=== PATIENT | female | born 1980 | race African-American/Black ===

== ENCOUNTER 2019-08-13 17:50 | Emergency (ER) | payer MEDICAID ==
[~2019-08-13] VITALS: Ht 157.5 cm; Wt 99.8 kg
[2019-08-13 18:00] VITALS: BP 144/99
--- NOTE | 2019-08-13 18:28 | Diagnostic Imaging Report ---
EXAM: CT Head Without Intravenous Contrast CLINICAL HISTORY: DIZZY TECHNIQUE: Axial computed tomography images of the head/brain without intravenous contrast. CTDI is 53 mGy and DLP is 953 mGy-cm. One or more of the following dose reduction techniques were used: automated exposure control, adjustment of the mA and/or kV according to patient size, use of iterative reconstruction technique. COMPARISON: No relevant prior studies available. FINDINGS: Brain: Unremarkable. No hemorrhage. No edema. Ventricles: Unremarkable. Bones/joints: Unremarkable. No acute fracture. Soft tissues: Unremarkable. Sinuses: Unremarkable as visualized. Mastoid air cells: Unremarkable as visualized. IMPRESSION: No acute intracranial abnormality.
[2019-08-13 18:57] LABS: BASOPHILS % (AUTO) 1.1 % (0.0-2.0); EOSINOPHILS % (AUTO) 0.5 % (0.0-3.0); HEMATOCRIT 42.8 % (37.0-47.0); LYMPHOCYTES % (AUTO) 24.1 % (20.0-45.0); MEAN CORPUSCULAR VOLUME 95 FL (80-99); MONOCYTES % (AUTO) 3.4 % (1.0-10.0); NEUTROPHILS % (AUTO) 70.9 % (45.0-75.0); PLATELET COUNT 518 K/UL (150-450); RED BLOOD COUNT 4.49 M/UL (4.20-5.40); RED CELL DISTRIBUTION WIDTH 12.3 % (11.6-14.8); WHITE BLOOD COUNT 10.3 K/UL (4.8-10.8)
[2019-08-13 18:58] LABS: APPEARANCE,URINE CLEAR; BILIRUBIN, URINE NEGATIVE (NEGATIVE); COLOR,URINE PALE YELLOW; GLUCOSE, URINE (UA) NEGATIVE (NEGATIVE); KETONES,URINE 2+ (NEGATIVE); LEUKOCYTE ESTERASE ,URINE NEGATIVE (NEGATIVE); NITRITE,URINE NEGATIVE (NEGATIVE); PH,URINE 6.5 (4.5-8.0); PROTEIN,URINE NEGATIVE (NEGATIVE); UROBILINOGEN,URINE NORMAL MG/DL (0.0-1.0)
--- NOTE | 2019-08-13 18:59 | Emergency Room Report ---
History of Present Illness General Chief Complaint: Palpitations Source: Patient Present Illness HPI 38-year-old female with history of hypertension and vertigo currently taking amlodipine and meclizine brought in by paramedics due to 1 week of palpitation. Patient arrives with heart rate of 140s. Patient reports that she has been staying home the whole time and has not left the house and has never gone to the grocery store. Reports that the pain started when she was sleeping. Has been immobile the whole time. Denies any chest pain or chest pain radiation. Denies headache and nausea vomiting at this time. Complains of increased vertigo in the past few days. Has been taking meclizine with little relief. Denies any abdominal pain, nausea vomiting diarrhea. No pedal edema, calf tenderness. Denies pleuritic chest pain. Before fluids were administered patient heart rate dropped to 120. Denies tobacco smoke, taking any drugs, alcohol intake. Appears to be super anxious and keep saying that she does not want to be here as she is afraid of coronavirus. Allergies: Coded Allergies: No Known Allergies (Unverified , 08/13/19) COVID-19 Screening Contact w/high risk pt: No Recent Travel to affected area: No Experienced COVID-19 symptoms?: No Patient History Past Medical History: see triage record Past Surgical History: none Pertinent Family History: none Now: No Immunizations: UTD Reviewed Nursing Documentation: PMH: Agreed; PSxH: Agreed Nursing Documentation-PM Past Medical History: No History, Except For Hx Hypertension: Yes Review of Systems All Other Systems: negative except mentioned in HPI Physical Exam Vital Signs Date Time Temp Pulse Resp B/P (MAP) Pulse Ox O2 Delivery O2 Flow Rate FiO2 08/13/19 17:50 140 20 144/99 (114) 98 Room Air 08/13/19 18:00 98.1 Sp02 EP Interpretation: reviewed, abnormal - Elevated heart rate General Appearance: no apparent distress, alert, GCS 15, non-toxic Head: normocephalic, atraumatic Eyes: bilateral eye normal inspection, bilateral eye PERRL ENT: hearing grossly normal, normal pharynx, no angioedema, normal voice Neck: full range of motion, supple/symm/no masses Respiratory: chest non-tender, lungs clear, normal breath sounds, no rhonchi, speaking full sentences Cardiovascular #1: regular rate, rhythm, no edema, no murmur Cardiovascular #2: 2+ carotid (R), 2+ carotid (L), 2+ radial (R), 2+ radial (L) Gastrointestinal: normal bowel sounds, non tender, soft, non-distended, no guarding, no rebound Rectal: deferred Genitourinary: no CVA tenderness Musculoskeletal: back normal, no calf tenderness, Dalila's Sign negative Neurologic: alert, motor strength/tone normal, oriented x3, sensory intact, responsive, speech normal Psychiatric: judgement/insight normal, memory normal, mood/affect normal, no suicidal/homicidal ideation Skin: no rash Lymphatic: no adenopathy Medical Decision Making PA Attestation All my diagnosis and treatment plans were reviewed ad discussed with my supervising physician Dr. Whittington Diagnostic Impression: Primary Impression: Tachycardia ER Course 38-year-old female with history of hypertension and vertigo currently taking amlodipine and meclizine brought in by paramedics due to 1 week of palpitation. Patient arrives with heart rate of 140s. Patient reports that she has been staying home the whole time and has not left the house and has never gone to the grocery store. Reports that the pain started when she was sleeping. Has been immobile the whole time. Denies any chest pain or chest pain radiation. Denies headache and nausea vomiting at this time. Complains of increased vertigo in the past few days. Has been taking meclizine with little relief. Denies any abdominal pain, nausea vomiting diarrhea. No pedal edema, calf tenderness. Denies pleuritic chest pain. Before fluids were administered patient heart rate dropped to 120. Denies tobacco smoke, taking any drugs, alcohol intake. Appears to be super anxious and keep saying that she does not want to be here as she is afraid of coronavirus. Ddx considered but are not limited to: GA, Angina, COPD, GERD, tachycardia Vital signs: are WNL, pt. is afebrile H&PE are most consistent with tachycardia ORDERS: EKG, Chest XR, cardiac labs ED INTERVENTIONS: 2 L of NS bolus I signed out the patient to Dr. Whittington at 7 PM EKG Diagnostic Results Rate: tachycardiac Rhythm: other - tachy ST Segments: no acute changes Other Impression No acute ST changes Chest X-Ray Diagnostic Results Chest X-Ray Diagnostic Results : Chest X-Ray Ordered: Yes # of Views/Limited/Complete: 1 View Indication: Other EP Interpretation: Yes PA Xray: Interpretation reviewed, by supervising MD, and agrees with findings. Interpretation: no consolidation, no effusion, no pneumothorax Impression: No acute disease Electronically Signed by: Daksha Shaw PA-C CT/MRI/US Diagnostic Results CT/MRI/US Diagnostic Results : Imaging Test Ordered: head CT no contrast Impression FINDINGS: Brain: Unremarkable. No hemorrhage. No edema. Ventricles: Unremarkable. Bones/joints: Unremarkable. No acute fracture. Soft tissues: Unremarkable. Sinuses: Unremarkable as visualized. Mastoid air cells: Unremarkable as visualized. IMPRESSION: No acute intracranial abnormality. Last Vital Signs Date Time Temp Pulse Resp B/P (MAP) Pulse Ox O2 Delivery O2 Flow Rate FiO2 08/13/19 18:00 98.1 131 20 144/99 98 Room Air Daksha Palafox August 13, 2019 18:59
[2019-08-13 19:07] LABS: ANION GAP 12 mmol/L (5-15); BLOOD UREA NITROGEN 11 mg/dL (7-18); CALCIUM 9.6 MG/DL (8.5-10.1); CARBON DIOXIDE 26 MMOL/L (21-32); CHLORIDE 104 MMOL/L (98-107); CREATININE 0.7 MG/DL (0.55-1.30); POTASSIUM 3.4 MMOL/L (3.5-5.1); SODIUM 142 MMOL/L (136-145)
[2019-08-13 19:12] LABS: ALANINE AMINOTRANSFERASE 23 U/L (12-78); ALBUMIN 3.9 G/DL (3.4-5.0); ALBUMIN/GLOBULIN RATIO 0.8 (1.0-2.7); ALKALINE PHOSPHATASE 89 U/L (46-116); ASPARTATE AMINO TRANSFERASE 12 U/L (15-37); BILIRUBIN,TOTAL 0.4 MG/DL (0.2-1.0)
[2019-08-13 19:29] VITALS: BP 142/94
[2019-08-13 20:29] VITALS: BP 146/93
--- NOTE | 2019-08-14 14:45 | Diagnostic Imaging Report ---
Indication: Chest pain Technique: One view of the chest Comparison: none Findings: Lungs and pleural spaces are clear. The heart size is normal. Impression: Negative
== END 2019-08-13 20:29 | disposition home or self-care (01) ==
LOC: EDBD 17:50 → EMR 18:30
DX: R00.0 Tachycardia, unspecified (principal); I10 Essential (primary) hypertension; R42 Dizziness and giddiness
CPT/HCPCS: 36415; 70450; 71045; 80053; 80307; 81003; 81025; 83880; 84484; 85025; 85379; 93005; 96360; J7030; Z7502; 99284; J8499

== ENCOUNTER 2019-12-09 14:45 | Emergency (ER) | payer MEDICAID ==
[~2019-12-09] VITALS: Ht 162.6 cm; Wt 98.9 kg
[2019-12-09] MEDS ORDERED: Lidocaine 2% Visc 15ml soln ORAL ONE (15:00)
[2019-12-09] MEDS ORDERED: Mylanta II UD 30ml ORAL ONE (15:00)
[2019-12-09] MEDS ORDERED: Dicyclomine HCl 10mg/5ml oral soln ORAL ONE (15:00)
--- NOTE | 2019-12-09 15:01 | NUR ---
ED Nurse Note: pt walked in to ER from home due to abdominal pain on Lt upper region for 2 weeks. pt denied N/V/D. per pt, she had diarrhea but due to taking laxative. pt aao x4 and ambulatory. calm and cooperative. skin clean and intact. calm and cooperative. no cardiac or pulmonary distress noted at this time.
--- NOTE | 2019-12-09 15:19 | Emergency Room Report ---
History of Present Illness General Chief Complaint: Abdominal Pain Source: Patient Present Illness HPI 38-year-old female with history of hypertension on amlodipine here with epigastric abdominal pain. Patient says that her pain is been ongoing for about 2 weeks. Says that it is exacerbated when she drinks orange juice and eats spicy food. Says that she suffers from heartburn periodically. Says that she took 1 Pepcid 2 days ago without any relief and drank some Pepto-Bismol earlier today and felt somewhat better. Pain is sharp in nature, located in the epigastric region, does not otherwise radiate. No other exacerbating or alleviating factors. Denies headaches, vision change, fevers, chills, chest pain, palpitation, shortness of breath, back pain vomiting, diarrhea, dysuria, hematuria, melena, hematochezia. 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 Past Medical History: No History, Except For Hx Hypertension: Yes Review of Systems All Other Systems: negative except mentioned in HPI Physical Exam Vital Signs Date Time Temp Pulse Resp B/P (MAP) Pulse Ox O2 Delivery O2 Flow Rate FiO2 12/09/19 14:49 97.9 132 18 162/90 (114) 98 Room Air Sp02 EP Interpretation: reviewed, normal General Appearance: no apparent distress, alert, GCS 15, non-toxic Head: normocephalic, atraumatic Eyes: bilateral eye normal inspection, bilateral eye PERRL ENT: hearing grossly normal, normal pharynx, no angioedema, normal voice Neck: full range of motion, supple/symm/no masses Respiratory: chest non-tender, lungs clear, normal breath sounds, speaking full sentences Cardiovascular #1: regular rate, rhythm, no edema Cardiovascular #2: 2+ carotid (R), 2+ carotid (L), 2+ radial (R), 2+ radial (L) , 2+ dorsalis pedis (R), 2+ dorsalis pedis (L) Gastrointestinal: normal bowel sounds, non tender, soft, non-distended, no guarding, no rebound Rectal: deferred Genitourinary: normal inspection, no CVA tenderness Musculoskeletal: back normal, normal range of motion, calf tenderness, gait/ station normal, non-tender Neurologic: alert, motor strength/tone normal, oriented x3, sensory intact, responsive, speech normal Psychiatric: judgement/insight normal, memory normal, mood/affect normal, no suicidal/homicidal ideation Lymphatic: no adenopathy Medical Decision Making Diagnostic Impression: Primary Impression: Abdominal pain ER Course Laboratory Tests Test 12/09/19 15:20 White Blood Count 8.3 K/UL (4.8-10.8) Red Blood Count 4.10 M/UL (4.20-5.40) L Hemoglobin 13.6 G/DL (12.0-16.0) Hematocrit 39.4 % (37.0-47.0) Mean Corpuscular Volume 96 FL (80-99) Mean Corpuscular Hemoglobin 33.3 PG (27.0-31.0) H Mean Corpuscular Hemoglobin Concent 34.6 G/DL (32.0-36.0) Red Cell Distribution Width 11.8 % (11.6-14.8) Platelet Count 452 K/UL (150-450) H Mean Platelet Volume 6.7 FL (6.5-10.1) Neutrophils (%) (Auto) 55.8 % (45.0-75.0) Lymphocytes (%) (Auto) 36.2 % (20.0-45.0) Monocytes (%) (Auto) 5.1 % (1.0-10.0) Eosinophils (%) (Auto) 1.5 % (0.0-3.0) Basophils (%) (Auto) 1.5 % (0.0-2.0) Urine Color Pale yellow Urine Appearance Clear Urine pH 7 (4.5-8.0) Urine Specific [place] 1.005 (1.005-1.035) Urine Protein Negative (NEGATIVE) Urine Glucose (UA) Negative (NEGATIVE) Urine Ketones Negative (NEGATIVE) Urine Blood Negative (NEGATIVE) Urine Nitrite Negative (NEGATIVE) Urine Bilirubin Negative (NEGATIVE) Urine Urobilinogen Normal MG/DL (0.0-1.0) Urine Leukocyte Esterase Trace (NEGATIVE) H Urine RBC 0-2 /HPF (0 - 2) Urine WBC 2-4 /HPF (0 - 2) Urine Squamous Epithelial Cells Few /LPF (NONE/OCC) Urine Bacteria Few /HPF (NONE) Urine HCG, Qualitative Negative (NEGATIVE) Sodium Level 140 MMOL/L (136-145) Potassium Level 4.5 MMOL/L (3.5-5.1) Chloride Level 103 MMOL/L (98-107) Carbon Dioxide Level 30 MMOL/L (21-32) Anion Gap 7 mmol/L (5-15) Blood Urea Nitrogen 14 mg/dL (7-18) Creatinine 0.7 MG/DL (0.55-1.30) Estimated Glomerular Filtration Rate > 60 mL/min (>60) Glucose Level 86 MG/DL (74-106) Calcium Level 9.7 MG/DL (8.5-10.1) Total Bilirubin 0.4 MG/DL (0.2-1.0) Aspartate Amino Transferase (AST) 13 U/L (15-37) L Alanine Aminotransferase (ALT) 21 U/L (12-78) Alkaline Phosphatase 89 U/L (46-116) Total Protein 8.6 G/DL (6.4-8.2) H Albumin 3.8 G/DL (3.4-5.0) Globulin 4.8 g/dL Albumin/Globulin Ratio 0.8 (1.0-2.7) L Lipase 119 U/L (73-393) 38-year-old female here with epigastric abdominal pain. Patient was hemodynamically stable in the emergency department had a completely normal physical examination. She received a GI cocktail with complete resolution of her symptoms. CBC, CMP, lipase all unremarkable. Urinalysis normal. Ddx: Hernia, bladder or kidney stones, diverticulitis, enteritis, appendicitis, genital pathology, GERD, gastritis Low suspicion at this time for serious pathology given the patient's normal vital signs, physical examination, lab work. Was given prescription for Pepcid 20 mg daily for 30 days. Told to follow-up with her primary care physician. Told to return to the emergency department she has any worsening abdominal pain , vomiting, diarrhea, bloody vomit or bloody stool. She expressed understanding and was discharged. Last Vital Signs Date Time Temp Pulse Resp B/P (MAP) Pulse Ox O2 Delivery O2 Flow Rate FiO2 12/09/19 14:49 97.9 132 18 162/90 (114) 98 Room Air Scripts Methocarbamol* (ROBAXIN-750*) 750 Mg Tablet 750 MG PO TID, #21 TAB 0 Refills Prov: Jayant Taylor M.D. 12/09/19 Famotidine* (Pepcid 20mg tablet*) 20 Mg Tablet 20 MG ORAL DAILY, #30 TAB 0 Refills Prov: Jayant Taylor M.D. 12/09/19 Referrals: [facility],REFERRING (PCP) Jayant Taylor M.D. Dec 09, 2019 15:19
[2019-12-09 15:36] LABS: APPEARANCE,URINE CLEAR; BILIRUBIN, URINE NEGATIVE (NEGATIVE); COLOR,URINE PALE YELLOW; GLUCOSE, URINE (UA) NEGATIVE (NEGATIVE); KETONES,URINE NEGATIVE (NEGATIVE); NITRITE,URINE NEGATIVE (NEGATIVE); PH,URINE 7 (4.5-8.0); PROTEIN,URINE NEGATIVE (NEGATIVE); UROBILINOGEN,URINE NORMAL MG/DL (0.0-1.0)
[2019-12-09 15:45] VITALS: BP 136/86
[2019-12-09 15:55] LABS: BASOPHILS % (AUTO) 1.5 % (0.0-2.0); EOSINOPHILS % (AUTO) 1.5 % (0.0-3.0); HEMATOCRIT 39.4 % (37.0-47.0); HEMOGLOBIN 13.6 G/DL (12.0-16.0); LYMPHOCYTES % (AUTO) 36.2 % (20.0-45.0); MEAN CORPUSCULAR VOLUME 96 FL (80-99); MONOCYTES % (AUTO) 5.1 % (1.0-10.0); NEUTROPHILS % (AUTO) 55.8 % (45.0-75.0); PLATELET COUNT 452 K/UL (150-450); RED CELL DISTRIBUTION WIDTH 11.8 % (11.6-14.8); WHITE BLOOD COUNT 8.3 K/UL (4.8-10.8)
[2019-12-09 16:00] LABS: LEUKOCYTE ESTERASE ,URINE TRACE (NEGATIVE)
[2019-12-09 16:01] LABS: ANION GAP 7 mmol/L (5-15); BLOOD UREA NITROGEN 14 mg/dL (7-18); CALCIUM 9.7 MG/DL (8.5-10.1); CARBON DIOXIDE 30 MMOL/L (21-32); CHLORIDE 103 MMOL/L (98-107); CREATININE 0.7 MG/DL (0.55-1.30); POTASSIUM 4.5 MMOL/L (3.5-5.1); SODIUM 140 MMOL/L (136-145)
[2019-12-09 16:11] LABS: ALANINE AMINOTRANSFERASE 21 U/L (12-78); ALBUMIN 3.8 G/DL (3.4-5.0); ALBUMIN/GLOBULIN RATIO 0.8 (1.0-2.7); ALKALINE PHOSPHATASE 89 U/L (46-116); ASPARTATE AMINO TRANSFERASE 13 U/L (15-37); BILIRUBIN,TOTAL 0.4 MG/DL (0.2-1.0)
[2019-12-09] MEDS ORDERED: FAMOTIDINE20 MG ORAL (16:24)
[2019-12-09 16:29] VITALS: BP 126/82
[2019-12-09] MEDS ORDERED: ROBAXIN-750750 MG PO (16:30)
--- NOTE | 2019-12-09 16:30 | NUR ---
ED Nurse Note: Pt cleared by health care Provider for discharge. DC instructions/prescription was given and explained to pt and verbalized understanding of teachings. All medical deviecs such as ID band removed. Pt is AAO x4, ambulatory and left with all personal belongings.
== END 2019-12-09 16:30 | disposition home or self-care (01) ==
LOC: EMR 15:01
DX: R10.13 Epigastric pain (principal); I10 Essential (primary) hypertension
CPT/HCPCS: 36415; 80053; 81003; 81025; 83690; 85025; Z7502; 99283

== ENCOUNTER 2019-12-31 12:39 | Emergency (ER) | payer MEDICAID ==
[~2019-12-31] VITALS: Ht 162.6 cm; Wt 98.9 kg
[~2019-12-31 12:39] MED LIST: FAMOTIDINE20 MG ORAL; ROBAXIN-750750 MG PO
[2019-12-31 12:46] VITALS: BP 118/77
[2019-12-31] MEDS ORDERED: Omnipaque-300 100ml vial INJ PRN (13:15)
[2019-12-31] MEDS ORDERED: Ketorolac 30mg Inj IV ONE ×2 (13:15→15:00)
--- NOTE | 2019-12-31 13:20 | NUR ---
ED Nurse Note: pt taken to CT via evelyn, urine specimen collected and sent to lab
[2019-12-31 13:38] LABS: APPEARANCE,URINE SLIGHTLY CLOUDY; BILIRUBIN, URINE NEGATIVE (NEGATIVE); COLOR,URINE PALE YELLOW; GLUCOSE, URINE (UA) NEGATIVE (NEGATIVE); KETONES,URINE NEGATIVE (NEGATIVE); LEUKOCYTE ESTERASE ,URINE 1+ (NEGATIVE); NITRITE,URINE NEGATIVE (NEGATIVE); PH,URINE 7 (4.5-8.0); PROTEIN,URINE NEGATIVE (NEGATIVE); UROBILINOGEN,URINE NORMAL MG/DL (0.0-1.0)
--- NOTE | 2019-12-31 13:52 | NUR ---
ED Nurse Note: blood specimen collected, sent to lab
[2019-12-31 14:10] LABS: BASOPHILS % (AUTO) 2.5 % (0.0-2.0); EOSINOPHILS % (AUTO) 1.4 % (0.0-3.0); HEMATOCRIT 40.1 % (37.0-47.0); HEMOGLOBIN 13.6 G/DL (12.0-16.0); LYMPHOCYTES % (AUTO) 35.1 % (20.0-45.0); MEAN CORPUSCULAR VOLUME 93 FL (80-99); MONOCYTES % (AUTO) 5.1 % (1.0-10.0); NEUTROPHILS % (AUTO) 55.9 % (45.0-75.0); PLATELET COUNT 507 K/UL (150-450); RED BLOOD COUNT 4.32 M/UL (4.20-5.40); RED CELL DISTRIBUTION WIDTH 11.4 % (11.6-14.8); WHITE BLOOD COUNT 6.6 K/UL (4.8-10.8)
[2019-12-31 14:17] LABS: ANION GAP 13 mmol/L (5-15); BLOOD UREA NITROGEN 10 mg/dL (7-18); CARBON DIOXIDE 23 MMOL/L (21-32); CHLORIDE 105 MMOL/L (98-107); CREATININE 0.6 MG/DL (0.55-1.30); POTASSIUM 3.9 MMOL/L (3.5-5.1); SODIUM 141 MMOL/L (136-145)
[2019-12-31 14:23] LABS: ALANINE AMINOTRANSFERASE 19 U/L (12-78); ALBUMIN 3.6 G/DL (3.4-5.0); ALBUMIN/GLOBULIN RATIO 0.8 (1.0-2.7); ALKALINE PHOSPHATASE 86 U/L (46-116); ASPARTATE AMINO TRANSFERASE 14 U/L (15-37); BILIRUBIN,TOTAL 0.6 MG/DL (0.2-1.0)
--- NOTE | 2019-12-31 14:25 | NUR ---
ED Nurse Note: Pt taken to CT accompanied by tech.
--- NOTE | 2019-12-31 14:28 | NUR ---
ED Nurse Note: Pt ambulated to ED from home c/o epigastric pain x 1month, states she was seen and treated here on 12/10 for similar symptoms, but sx persisted. Pt reports the pain "burning" that comes and goes, pt denies urinary symptoms. Pt is AOx4, calm and cooperative, VSS, on RA, afebrileon triage.
--- NOTE | 2019-12-31 15:06 | NUR ---
ED Nurse Note: after scanning accidentally threw vial on the sharps container. will notify ERPA.
[2019-12-31] MEDS ORDERED: Ketorolac 30mg Inj IM ONE (15:15)
--- NOTE | 2019-12-31 15:17 | Diagnostic Imaging Report ---
Clinical Indication: Epigastric pain Technique: No oral contrast utilized, per emergency room physician request IV administration nonionic contrast. Venous phase spiral acquisition obtained through the abdomen and pelvis. Multiplanar reconstructions were generated. Total dose length product 764 mGycm. CTDIvol(s) 50 mGy. Dose reduction achieved using automated exposure control Comparison: none Findings: Opacities within the anterior abdominal wall and bilateral buttock subcutaneous fat may reflect postsurgical changes Lack of enteric contrast limits assessment of the GI tract. There are small colonic diverticula. No evidence of acute diverticulitis. The appendix is normal. No small bowel distention. No free or loculated intraperitoneal gas or fluid is evident. Distal esophagus, stomach, duodenum are unremarkable. The liver, gallbladder, pancreas, spleen, right adrenal, kidneys are unremarkable. The left adrenal demonstrates a 12 mm nodule. This demonstrates nonspecific attenuation. No retroperitoneal or mesenteric mass or adenopathy. No pelvic mass or adenopathy. Uterus is unremarkable. The ovaries are symmetrically slightly prominent. Unremarkable bladder. The included lung bases are clear. The bones are unremarkable. Impression: Limited assessment of the GI tract, due to lack of enteric contrast administration. No definite acute abnormality 12 mm left adrenal nodule, appearance nonspecific. Consider further evaluation with adrenal protocol MRI or CT Evidence of scarring of the subcutaneous fat, may indicate prior abdominal wall surgery. Correlate with clinical history The CT scanner at [facility] is accredited by the [employer] and the scans are performed using protocols designed to limit radiation exposure to as low as reasonably achievable to attain images of sufficient resolution adequate for diagnostic evaluation.
--- NOTE | 2019-12-31 15:22 | Emergency Room Report ---
History of Present Illness General Chief Complaint: Abdominal Pain Present Illness HPI 39-year-old female with history of marijuana abuse on daily basis and gastritis was recently seen [facility] here complaining of burning sensation in the epigastric. Acid reflux. Patient was seen here a month ago for the same patient is to follow-up with primary doctor. Patient continues to eat greasy food. Reports that she no longer eats spicy and acidic food. Also complains of constipation and flatulence. Denies any fever and chills, bloody stools, or any blood in vomit. Denies any chest pain shortness of breath. Has not taken medication for symptom relief reports that she was never able to get the prescription filled for Pepcid and has been back order. Denies any urinary symptoms. 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 Patient History Past Medical History: see triage record Past Surgical History: none Pertinent Family History: none Social History: Reports: drug use - Daily marijuana use Last Menstrual Period: 12/15/2019 Now: No Immunizations: UTD Reviewed Nursing Documentation: PMH: Agreed; PSxH: Agreed Nursing Documentation-PMH Hx Hypertension: Yes Review of Systems All Other Systems: negative except mentioned in HPI Physical Exam Vital Signs Date Time Temp Pulse Resp B/P (MAP) Pulse Ox O2 Delivery O2 Flow Rate FiO2 12/31/19 12:45 98.2 99 18 118/77 (91) 97 Room Air Sp02 EP Interpretation: reviewed, normal General Appearance: no apparent distress, alert, GCS 15, non-toxic Head: normocephalic, atraumatic Eyes: bilateral eye normal inspection, bilateral eye PERRL ENT: hearing grossly normal, normal pharynx, no angioedema, normal voice Neck: full range of motion, supple/symm/no masses Respiratory: chest non-tender, lungs clear, normal breath sounds, speaking full sentences Cardiovascular #1: regular rate, rhythm, no edema, no gallop Gastrointestinal: normal bowel sounds, non tender, soft, no mass, no organomegaly, no peritonitis, no bruit, non-distended, no guarding, no hernia, no pulsatile mass, no rebound Rectal: deferred Genitourinary: no CVA tenderness Musculoskeletal: back normal Neurologic: alert, motor strength/tone normal, oriented x3, sensory intact, responsive, speech normal Psychiatric: judgement/insight normal, memory normal, mood/affect normal, no suicidal/homicidal ideation Skin: no rash Lymphatic: no adenopathy Medical Decision Making PA Attestation All my diagnosis and treatment plans were reviewed ad discussed with my supervising physician Dr. Whittington Diagnostic Impression: Primary Impression: Constipation Additional Impression: Gastritis ER Course 39-year-old female with history of marijuana abuse on daily basis and gastritis was recently seen [facility] here complaining of burning sensation in the epigastric. Acid reflux. Patient was seen here a month ago for the same patient is to follow-up with primary doctor. Patient continues to eat greasy food. Reports that she no longer eats spicy and acidic food. Also complains of constipation and flatulence. Denies any fever and chills, bloody stools, or any blood in vomit. Denies any chest pain shortness of breath. Has not taken medication for symptom relief reports that she was never able to get the prescription filled for Pepcid and has been back order. Denies any urinary symptoms. Ddx considered but are not limited to: appendicitis, cholecystis, gastritis, gastroenteritis, UTI, pyelonephritis, SBO, diverticulitis, pancreatitis Vital signs: are WNL, pt. is afebrile H&PE are most consistent with: Constipation, gastritis ORDERS: abdominal CT, abdominal pain set, omeprazole, Tylenol, Colace ED INTERVENTIONS: NS bolus, Pepcid, Toradol, Zofran DISCHARGE: At this time pt. is stable for d/c to home. Will provide printed patient care instructions, and any necessary prescriptions. Care plan and follow up instructions have been discussed with the patient prior to discharge. Advised patient to follow primary doctor for referral to computer systems hardware analyst possible endoscopy to rule out gastric versus duodenal ulcer. Also to be tested for H. pylori bacteria per request of primary doctor. Also advised patient to stop using marijuana patient to return to emergency room if worsening symptoms Other X-Ray Diagnostic Results Other X-Ray Diagnostic Results : X-Ray ordered: KUB # of Views/Limited Vs Complete: 1 View Indication: Pain EP Interpretation: Yes PA Xray: Interpretation reviewed, by supervising MD, and agrees with findings. Interpretation: nonspecific bowel gas, no sbo Impression: No acute disease Electronically Signed by: Daksha Shaw PA-C CT/MRI/US Diagnostic Results CT/MRI/US Diagnostic Results : Imaging Test Ordered: CT abdomen pelvis with contrast Impression No acute condition noted. Last Vital Signs Date Time Temp Pulse Resp B/P (MAP) Pulse Ox O2 Delivery O2 Flow Rate FiO2 12/31/19 14:12 98.2 12/31/19 12:46 99 18 Room Air 12/31/19 12:46 118/77 97 Disposition: HOME, SELF-CARE Condition: Stable Scripts Acetaminophen* (TYLENOL EXTRA STRENGTH*) 500 Mg Tablet 500 MG ORAL Q8H PRN for Prn Headache/Temp > 101, #30 TAB 0 Refills Prov: Daksha Palafox 12/31/19 Docusate Sodium* (COLACE*) 100 Mg Capsule 100 MG ORAL TWICE A DAY, #20 CAP Prov: Daksha Palafox 12/31/19 Omeprazole (OMEPRAZOLE) 40 Mg Capsule.dr 40 MG ORAL DAILY, #30 CAP Prov: Daksha Palafox 12/31/19 Patient Instructions: Abdominal Pain, Adult, Constipation, Adult, [id number], Gastritis, Adult, [id number] Additional Instructions: Take medication as directed, follow-up primary care provider, referral to GI doctor may be needed per request of primary doctor to rule out possible ulcer. If worsening symptoms return to the emergency room Daksha Palafox Dec 31, 2019 15:21
[2019-12-31] MEDS ORDERED: COLACE100 MG ORAL (15:24)
[2019-12-31] MEDS ORDERED: OMEPRAZOLE40 M1 ORAL (15:24)
[2019-12-31] MEDS ORDERED: TYLENOL EXTRA500 MG ORAL (15:24)
[2019-12-31 15:46] VITALS: BP 120/80
--- NOTE | 2019-12-31 15:46 | NUR ---
ER DISCHARGE NOTE: Patient is cleared to be discharged per ERPA, pt is aox4, on room air, with stable vital signs. pt was given dc and prescription instructions, pt was able to verbalize understanding, pt id band and iv site removed without complications. pt is able to ambulate with steady gait. pt took all belongings.
== END 2019-12-31 15:46 | disposition home or self-care (01) ==
LOC: EMR 15:26
DX: K59.00 Constipation, unspecified (principal); K29.70 Gastritis, unspecified, without bleeding; I10 Essential (primary) hypertension; F12.90 Cannabis use, unspecified, uncomplicated
CPT/HCPCS: 36415; 74177; 80053; 80307; 81003; 81025; 85025; 96361; 96372; 96374; 96375; 96376; G0480; J1885; J2405; J7030; Q9965; S0028; Z7502; 99284

== ENCOUNTER 2020-04-21 15:16 | Emergency (ER) | payer MEDICAID ==
[~2020-04-21] VITALS: Ht 162.6 cm; Wt 98.9 kg
[~2020-04-21 15:16] MED LIST changes: +COLACE100 MG ORAL; +OMEPRAZOLE40 M1 ORAL; +TYLENOL EXTRA500 MG ORAL
--- NOTE | 2020-04-21 15:16 | NUR ---
ED Nurse Note: Pt walked in from home c/o epigastric pain since November with dx of h pylori. Pt seen by gastrologist last week and prescribed pepcid, but pain has continued. Respirations even and unlabored on room air. Vitals stable as documented. A+Ox4, speaking in complete sentences.
[2020-04-21] MEDS ORDERED: Ketorolac 30mg Inj IV ONE (15:45)
[2020-04-21] MEDS ORDERED: Omnipaque-300 100ml vial INJ PRN (16:00)
[2020-04-21 16:03] VITALS: BP 131/84
[2020-04-21 16:05] LABS: BASOPHILS % (AUTO) 1.1 % (0.0-2.0); HEMATOCRIT 39.7 % (37.0-47.0); HEMOGLOBIN 12.9 G/DL (12.0-16.0); LYMPHOCYTES % (AUTO) 33.9 % (20.0-45.0); MEAN CORPUSCULAR VOLUME 94 FL (80-99); MONOCYTES % (AUTO) 4.2 % (1.0-10.0); NEUTROPHILS % (AUTO) 59.9 % (45.0-75.0); PLATELET COUNT 642 K/UL (150-450); RED BLOOD COUNT 4.22 M/UL (4.20-5.40); RED CELL DISTRIBUTION WIDTH 12.4 % (11.6-14.8); WHITE BLOOD COUNT 9.2 K/UL (4.8-10.8)
[2020-04-21 16:07] LABS: APPEARANCE,URINE SLIGHTLY CLOUDY; BILIRUBIN, URINE NEGATIVE (NEGATIVE); GLUCOSE, URINE (UA) NEGATIVE (NEGATIVE); KETONES,URINE 2+ (NEGATIVE); LEUKOCYTE ESTERASE ,URINE 2+ (NEGATIVE); NITRITE,URINE NEGATIVE (NEGATIVE); PH,URINE 6.5 (4.5-8.0); PROTEIN,URINE 1+ (NEGATIVE); UROBILINOGEN,URINE NORMAL MG/DL (0.0-1.0)
[2020-04-21 16:12] LABS: COLOR,URINE YELLOW
[2020-04-21 16:19] LABS: ANION GAP 7 mmol/L (5-15); BLOOD UREA NITROGEN 15 mg/dL (7-18); CALCIUM 9.3 MG/DL (8.5-10.1); CARBON DIOXIDE 28 MMOL/L (21-32); CHLORIDE 105 MMOL/L (98-107); CREATININE 0.6 MG/DL (0.55-1.30); POTASSIUM 3.7 MMOL/L (3.5-5.1); SODIUM 140 MMOL/L (136-145)
[2020-04-21 16:23] LABS: ALANINE AMINOTRANSFERASE 17 U/L (12-78); ALBUMIN 3.5 G/DL (3.4-5.0); ALBUMIN/GLOBULIN RATIO 0.7 (1.0-2.7); ALKALINE PHOSPHATASE 100 U/L (46-116); ASPARTATE AMINO TRANSFERASE 17 U/L (15-37); BILIRUBIN,TOTAL 0.4 MG/DL (0.2-1.0)
--- NOTE | 2020-04-21 17:43 | Emergency Room Report ---
History of Present Illness General Chief Complaint: Abdominal Pain Present Illness HPI 39-year-old female with history of gastritis per recent endoscopy and diagnosis of H. Pylori here complaining of worsening epigastric pain x1 week. Patient reports that this pain has been going on since November 2019. Patient was treated with antibiotics for his primary and is currently taking Pepcid. Reports that endoscopy was within normal limits. Patient was at [facility] office 1 week ago. Reports that she no longer eats greasy and spicy food. Patient is morbidly obese. Denies tobacco smoke however reports that she continues to smoke marijuana. Denies chest pain chest pain radiation. Denies nausea vomiting. Denies diarrhea constipation. Denies bloody stools. Has not taken any other medication for symptom relief. Symptoms. Allergies: Coded Allergies: No Known Allergies (Unverified , 08/13/19) COVID-19 Screening Contact w/high risk pt: No Recent Travel to affected area: No Experienced COVID-19 symptoms?: No COVID-19 Testing performed RESIDENCY PROGRAM COORDINATOR: No Patient History Past Medical History: see triage record Past Surgical History: none Pertinent Family History: none Last Menstrual Period: 1-5 Now: No Reviewed Nursing Documentation: PMH: Agreed; PSxH: Agreed Nursing Documentation-PMH Past Medical History: No History, Except For Hx Hypertension: Yes Hx Gastrointestinal Problems: Yes - liposuction, h. pylori Review of Systems All Other Systems: negative except mentioned in HPI Physical Exam Vital Signs Date Time Temp Pulse Resp B/P (MAP) Pulse Ox O2 Delivery O2 Flow Rate FiO2 04/21/20 15:21 99.0 101 20 134/97 (109) 97 Room Air Sp02 EP Interpretation: reviewed, normal General Appearance: mild distress, obese Head: normocephalic, atraumatic Eyes: bilateral eye normal inspection, bilateral eye PERRL ENT: no angioedema Neck: supple Respiratory: chest non-tender, no respiratory distress, no retraction, no accessory muscle use Cardiovascular #1: regular rate, rhythm, no edema Gastrointestinal: non tender, soft, no mass, no organomegaly, no peritonitis, no bruit, no guarding Rectal: deferred Genitourinary: no CVA tenderness Musculoskeletal: back normal Neurologic: alert, motor strength/tone normal, oriented x3, sensory intact, responsive, speech normal Psychiatric: judgement/insight normal, memory normal, mood/affect normal, no suicidal/homicidal ideation Skin: no rash Lymphatic: no adenopathy Medical Decision Making PA Attestation All my diagnosis and treatment plans were reviewed ad discussed with my supervising physician Dr. Hawkins Diagnostic Impression: Primary Impression: Constipation Additional Impressions: Gastritis Adrenal nodule Marijuana abuse ER Course 39-year-old female with history of gastritis per recent endoscopy and diagnosis of H. Pylori here complaining of worsening epigastric pain x1 week. Patient reports that this pain has been going on since November 2019. Patient was treated with antibiotics for his primary and is currently taking Pepcid. Reports that endoscopy was within normal limits. Patient was at [facility] office 1 week ago. Reports that she no longer eats greasy and spicy food. Patient is morbidly obese. Denies tobacco smoke however reports that she continues to smoke marijuana. Denies chest pain chest pain radiation. Denies nausea vomiting. Denies diarrhea constipation. Denies bloody stools. Has not taken any other medication for symptom relief. Symptoms. Ddx considered but are not limited to: appendicitis, cholecystis, gastritis, gastroenteritis, UTI, pyelonephritis, SBO, diverticulitis, VA, pancreatitis, gastric ulcer, hiatal hernia, Vital signs: are WNL, pt. is afebrile H&PE are most consistent with: Constipation, gastritis, adrenal nodule, marijuana abuse ORDERS: abdominal CT, EKG, troponin, CBC, CMP, UA, tox screen, lipase, omeprazole, dicyclomine, Colace, lactulose ED INTERVENTIONS: Toradol, NS bolus, Zofran, Pepcid DISCHARGE: At this time pt. is stable for d/c to home. Will provide printed patient care instructions, and any necessary prescriptions. Care plan and follow up instructions have been discussed with the patient prior to discharge. Avoid eating greasy spicy food, take medication as directed, follow-up with your primary doctor and chief station [employer], increase your fiber intake, if worsening symptoms return to emergency room. Also addressed adrenal nodules with her primary doctor. EKG Diagnostic Results Rate: normal Rhythm: NSR ST Segments: no acute changes Other Impression No acute ST changes ASA given to the pt in ED: No CT/MRI/US Diagnostic Results CT/MRI/US Diagnostic Results : Imaging Test Ordered: CT abdomen pelvis with contrast Impression COMPARISON: 12/31/19 FINDINGS: The lung bases demonstrate no acute infiltrate. The liver, biliary tree, pancreas, spleen, and kidneys are within normal limits. A 1.2 cm left adrenal nodule is stable, indeterminate based on density. There is no bowel obstruction or perforation. The appendix is unremarkable. Stable mesenteric root stranding and small lymph nodes. Consider panniculitis/lipodystrophy. Stable fullness to both ovaries. No discrete mass. No significant free fluid collection. Stable induration of subcutaneous fat to the anterior abdominal wall. Consider sequela of chronic injections. This may also contribute to changes to the buttoc ks and gluteal musculature. No abscess. No abdominal aortic aneurysm. No acute fracture. IMPRESSION: Persistent stranding about the mesenteric root. Broad differential diagnosis including panniculitis/lipodystrophy. No change in the interval. 1.2 cm left adrenal nodule. This is indeterminate based on density, but stable in the interval. Subcutaneous induration to the anterior abdominal wall and buttocks could reflect sequela of chronic injections. No discrete abscess. Last Vital Signs Date Time Temp Pulse Resp B/P (MAP) Pulse Ox O2 Delivery O2 Flow Rate FiO2 04/21/20 16:03 98.9 97 20 131/84 98 Room Air Disposition: HOME, SELF-CARE Condition: Stable Scripts Docusate Sodium* (COLACE*) 100 Mg Capsule 100 MG ORAL TWICE A DAY, #30 CAP Prov: Daksha Palafox 04/21/20 Lactulose (LACTULOSE*) 20 Gm/30 Ml Solution 15 ML ORAL TID, #450 ML 0 Refills Prov: Daksha Palafox 04/21/20 Dicyclomine Hcl* (DICYCLOMINE HCL*) 10 Mg Capsule 10 MG ORAL QID, #20 CAP Prov: Daksha Palafox 04/21/20 Omeprazole (OMEPRAZOLE) 20 Mg Tablet.dr 20 MG ORAL DAILY, #30 TAB Prov: Daksha Palafox 04/21/20 Referrals: NON PHYSICIAN (PCP) Patient Instructions: Constipation, Adult, [id number], Gastritis, Adult, [id number] Additional Instructions: Avoid eating greasy spicy food, take medication as directed, follow-up with your primary doctor and chief station engineer, increase your fiber intake, if w orsening symptoms return to emergency room. Also addressed adrenal nodules with her prim Daksha Palafox Apr 21, 2020 17:43
--- NOTE | 2020-04-21 18:06 | Diagnostic Imaging Report ---
EXAM: CT Abdomen and Pelvis With Intravenous Contrast CLINICAL HISTORY: PAIN TECHNIQUE: Axial computed tomography images of the abdomen and pelvis with intravenous contrast. CTDI is 16.2 mGy and DLP is 885.8 mGy-cm. One or more of the following dose reduction techniques were used: automated exposure control, adjustment of the mA and/or kV according to patient size, use of iterative reconstruction technique. COMPARISON: 12/31/19 FINDINGS: The lung bases demonstrate no acute infiltrate. The liver, biliary tree, pancreas, spleen, and kidneys are within normal limits. A 1.2 cm left adrenal nodule is stable, indeterminate based on density. There is no bowel obstruction or perforation. The appendix is unremarkable. Stable mesenteric root stranding and small lymph nodes. Consider panniculitis/lipodystrophy. Stable fullness to both ovaries. No discrete mass. No significant free fluid collection. Stable induration of subcutaneous fat to the anterior abdominal wall. Consider sequela of chronic injections. This may also contribute to changes to the buttocks and gluteal musculature. No abscess. No abdominal aortic aneurysm. No acute fracture. IMPRESSION: Persistent stranding about the mesenteric root. Broad differential diagnosis including panniculitis/lipodystrophy. No change in the interval. 1.2 cm left adrenal nodule. This is indeterminate based on density, but stable in the interval. Subcutaneous induration to the anterior abdominal wall and buttocks could reflect sequela of chronic injections. No discrete abscess.
[2020-04-21] MEDS ORDERED: OMEPRAZOLE20 M3 ORAL (18:23)
[2020-04-21] MEDS ORDERED: LACTULOSE20 GM/301 ORAL (18:23)
[2020-04-21] MEDS ORDERED: DICYCLOMINE HCL10 MG ORAL (18:23)
[2020-04-21] MEDS ORDERED: COLACE100 MG ORAL (18:23)
[2020-04-21 18:39] VITALS: BP 128/75
--- NOTE | 2020-04-21 18:39 | NUR ---
ER DISCHARGE NOTE: Patient is cleared to be discharged per ERMD, pt is aox4, on room air, with stable vital signs. pt was given dc and prescription instructions, pt was able to verbalize understanding, pt id band and iv site removed without complications. pt is able to ambulate with steady gait. pt took all belongings.
== END 2020-04-21 18:39 | disposition home or self-care (01) ==
LOC: EMR 15:29
DX: K59.00 Constipation, unspecified (principal); K29.70 Gastritis, unspecified, without bleeding; E27.8 Other specified disorders of adrenal gland; F12.10 Cannabis abuse, uncomplicated; I10 Essential (primary) hypertension; E66.01 Morbid (severe) obesity due to excess calories; Z68.37 Body mass index [BMI] 37.0-37.9, adult
CPT/HCPCS: 36415; 74177; 80053; 80307; 81003; 81025; 83690; 84484; 85025; 87086; 87181; 93005; 96361; 96374; 96375; G0480; J1885; J2405; J7030; Q9965; S0028; Z7502; 99284